=== PATIENT | male | born 1990 | race Two or more races ===

== ENCOUNTER 2018-05-30 12:47 | Emergency (ER) | payer BC, OTHER ==
[2018-05-30 12:58] VITALS: BP 120/78; PULSE 95; TEMP 97.9; BMI 27.8
[2018-05-30] MEDS ORDERED: IBUPROFEN 400 MG TABLET (FP) PO ONE (13:28)
[2018-05-30] MEDS ORDERED: SODIUM CHLORIDE 1,000 ML IV STA (13:31)
--- NOTE | 2018-05-30 13:35 | PDOC ---
*Physical Exam - Vital Signs Last Vital Signs Temp Pulse Resp BP Pulse Ox 97.9 F 95 H 16 120/78 98 05/30/18 12:54 05/30/18 12:54 05/30/18 12:54 05/30/18 12:54 05/30/18 12:54 - Physical Exam Comments: 05/30/18 13:34 The patient was examined by [TEE Peck] under my direct supervision. I personally evaluated the patient. I concur with the above findings and the plan of care. 05/30/18 16:35 28-year-old with weakness, malaise, midthoracic back pain and leukocytosis. No risk factors for spinal epidural abscess. No evidence of petechial rash or meningismus. Will discharge with clear instructions to return if focal weakness , rash or headache develop. ED Treatment Course - LABORATORY CBC & Chemistry Diagram: 05/30/18 14:35 05/30/18 14:35 *DC/Admit/Observation/Transfer Diagnosis at time of Disposition: Viral syndrome - Discharge Dispostion Disposition: HOME Condition at time of disposition: Improved - Prescriptions Prescriptions: Ibuprofen [Motrin -] 2 tab PO Q6H #30 tablet - Referrals Referrals: Chidi Calzada MD [Primary Care Provider] - - Patient Instructions Printed Discharge Instructions: DI for Viral Syndrome Additional Instructions: You may have a viral illness. Your labs and flu tests were negative Rest, maintain adequate hydration and take motrin and tylenol for pain as needed Please return if symptoms worsen as discussed in ED - Post Discharge Activity
--- NOTE | 2018-05-30 13:59 | PDOC ---
History of Present Illness - General Chief Complaint: Revisit, Lab Variance Stated Complaint: LAB VARIANCE Time Seen by Provider: 05/30/18 13:26 History Source: Patient - History of Present Illness Timing/Duration: other (this am) Past History - Past Medical History Allergies/Adverse Reactions: Allergies Allergy/AdvReac Type Severity Reaction Status Date / Time No Known Allergies Allergy Verified 05/30/18 15:10 Home Medications: Ambulatory Orders Ibuprofen [Motrin -] 2 tab PO Q6H #30 tablet 05/30/18 COPD: No - Immunization History Immunization Up to Date: No - Suicide/Smoking/Psychosocial Hx Smoking History: Never smoked Hx Alcohol Use: No Drug/Substance Use Hx: No Review of Systems - Review of Systems Constitutional: Yes: Malaise. No: Chills, Fever Respiratory: No: Cough, Shortness of Breath Cardiac (ROS): No: Chest Pain ABD/GI: No: Nausea, Vomiting, Abdominal cramping : No: Dysuria, Flank Pain, Hematuria Musculoskeletal: Yes: Back Pain. No: Neck Pain Neurological: No: Headache, Numbness, Tingling *Physical Exam - Vital Signs Last Vital Signs Temp Pulse Resp BP Pulse Ox 97.9 F 95 H 16 120/78 98 05/30/18 12:54 05/30/18 12:54 05/30/18 12:54 05/30/18 12:54 05/30/18 12:54 - Physical Exam General Appearance: Yes: Appropriately Dressed. No: Apparent Distress HEENT: positive: Normal ENT Inspection, Normal Voice. negative: Scleral Icterus (R), Scleral Icterus (L) Neck: positive: Supple. negative: Lymphadenopathy (R), Lymphadenopathy (L) Respiratory/Chest: positive: Lungs Clear, Normal Breath Sounds. negative: Respiratory Distress Gastrointestinal/Abdominal: positive: Soft. negative: Tender, Distended, Guarding, Rebound Musculoskeletal: negative: CVA Tenderness Extremity: positive: Normal Inspection Integumentary: positive: Dry, Warm. negative: Rash Neurologic: positive: Fully Oriented, Alert, Normal Mood/Affect Moderate Sedation - Procedure Monitoring Vital Signs: Procedure Monitoring Vital Signs Temperature 97.9 F 05/30/18 12:54 Pulse Rate 95 H 05/30/18 12:54 Respiratory Rate 16 05/30/18 12:54 Blood Pressure 120/78 01/02/19 12:54 O2 Sat by Pulse Oximetry (%) 98 05/30/18 12:54 ED Treatment Course - LABORATORY CBC & Chemistry Diagram: 05/30/18 14:35 05/30/18 14:35 Medical Decision Making - Medical Decision Making 05/30/18 13:53 28 yo M, no sig hx, here with sudden onset malaise w/ subj fever, chills, n/v and body aches including back pain that 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 Went to and had labs which revealed WBC of 18. Tested neg for the flu per pt. Also had CXR done which was negative. States he was sent to ED for further evaluation. Pt denies cough, sob, CP, neck pain, OCASIO, photophobia, rash, abd pain, diarrhea, dysuria. See exam Possible viral syndrome this am +leukocytosis to 18 at today, neg flu and cxr at [facility] (pt has results on his person) Pt well lenny and stable w/ minimal ttp to lower back diffusely -will rpt labs -supportive yx -anticipate dc w/ supportive tx 05/30/18 16:29 WBC 22, rest of labs wnl. Pt reports improvement w/ IVF/motrin. No e/o meningitis and no RF for epidural abscess (denies IVDA/immunocompromised state) . As d/w Dr Hager (who also evaluated pt), will dc /w supportive tx and strict return precautions. *DC/Admit/Observation/Transfer Diagnosis at time of Disposition: Viral syndrome - Discharge Dispostion Disposition: HOME Condition at time of disposition: Improved - Prescriptions Prescriptions: Ibuprofen [Motrin -] 2 tab PO Q6H #30 tablet - Referrals Referrals: Chidi Calzada MD [Primary Care Provider] - - Patient Instructions Printed Discharge Instructions: DI for Viral Syndrome Additional Instructions: You may have a viral illness. Your labs and flu tests were negative Rest, maintain adequate hydration and take motrin and tylenol for pain as needed Please return if symptoms worsen as discussed in ED - Post Discharge Activity
[2018-05-30 14:55] LABS: BASO % 0.4 % (0-2.0); EOS % 0.1 % (0-4.5); HEMATOCRIT 45.2 % (35.4-49); HEMOGLOBIN 14.6 GM/dL (11.7-16.9); LYMPH % 4.5 % (8-40); MCH 28.3 pg (25.7-33.7); MCHC 32.3 g/dl (32.0-35.9); MEAN CELL VOLUME 87.7 fl (80-96); MONO % 7.2 % (3.8-10.2); NEUT % 87.8 % (42.8-82.8); RBC 5.15 M/mm3 (4.00-5.60); RDW 13.4 % (11.9-15.9); WHITE BLOOD COUNT 22.1 K/mm3 (4.0-10.0)
[2018-05-30 15:07] LABS: URINE APPEARANCE CLEAR; URINE BILIRUBIN NEGATIVE (<2.0 mg/dL); URINE COLOR YELLOW; URINE GLUCOSE (UA) NEGATIVE (NEGATIVE); URINE KETONE NEGATIVE (NEGATIVE); URINE LEUK ESTERASE NEGATIVE (NEGATIVE); URINE NITRITE NEGATIVE (NEGATIVE); URINE PROTEIN NEGATIVE (NEGATIVE); URINE UROBILINOGEN NEGATIVE mg/dL (0.2-1.0)
[2018-05-30 15:24] LABS: ALBUMIN 3.9 g/dl (3.4-5.0); ALK PHOS 85 U/L (45-117); ANION GAP 7 MMOL/L (8-16); BILIRUBIN,TOTAL 1.1 mg/dL (0.2-1); BLOOD UREA NITROGEN 17 mg/dL (7-18); CALCIUM 8.9 mg/dL (8.5-10.1); CHLORIDE 102 mmol/L (98-107); CO2 27 mmol/L (21-32); CREATININE 0.9 mg/dL (0.55-1.3); GLUCOSE,RANDOM 99 mg/dL (74-106); LIPASE 87 U/L (73-393); POTASSIUM 3.9 mmol/L (3.5-5.1); SGOT/AST 23 U/L (15-37); SGPT/ALT 55 U/L (13-61); SODIUM 135 mmol/L (136-145); TOT PROT 8.7 g/dl (6.4-8.2)
[2018-05-30 15:37] LABS: ACANTHOCYTES 0; ANISOCYTOSIS 0; HELMET CELLS 0; HOWELL-JOLLY BODIES 0; MACROCYTOSIS 0; OVALOCYTE 0; ROULEAU 0; SICKELED CELLS 0; TARGET CELLS 0; TEAR DROP CELLS 0; TOXIC GRANULATION 0
== END 2018-05-30 17:00 | disposition home or self-care (01) ==
LOC: JER 12:47
PROC: 3E0337Z Introduction of Electrolytic and Water Balance Substance into Peripheral Vein, Percutaneous Approach (ICD-10-PCS; principal; 2018-05-30)
DX: B34.9 Viral infection, unspecified (principal)
CPT/HCPCS: 36415; 80053; 81003; 83690; 85025; 87804; 99281-25; J7030